=== PATIENT | female | born 1970 | race Caucasian/White ===

== ENCOUNTER → 2018-04-26 | Outpatient (CLI) | payer OTHER ==
[~2018-04-26] MED LIST: AMBEREN; ASPIRIN EC81 M1 PO; ASPIRIN325; HYDROCODONE-AP1 EAC6 PO; IBUPROFEN; MEDROL DOSPAK21 TA1 PO; MOTION RELIEF25 MG PO; NEPHROCAPS SOFT1 CAP PO; NEXIUM 40 MG CA40 M1; NORCO 5-325 TA1 EACH PO; OSELB75 PO; PAXIL CR12.5 MG; RANEXA1000 MG PO; ULTRAM 50MG TAB50 MG PO; VENTOLIN HFA 1818 GM INH; VICODIN; XANAX 0.25 MG0.25 MG PO; XANAX 0.5 MG0.5 M1 PO; ZANTAC; ZOFRAN 4 MG ORAL4 MG PO; ZOFRAN ODT4 MG PO
--- NOTE | 2018-04-26 15:11 | EXE ---
[place] [address] STRESS ECHOCARDIOGRAM Name: ABRAHAM HOFFMAN Room: [facility]#: [id number] Admission: 04/26/18 Attend Phys: Timoteo Gilliland, Discharge: Date of : 68 Date of Service: 04/26/18 1510 Report #: [id number] THIS REPORT FOR: //name// APPROVED REPORT Study performed: 04/26/2018 13:10:54 Exam: Stress Echocardiogram Indication: Syncope, Abnormal EKG, CAD Patient Location: Out-Patient Stress Nurse: Ludmila Suarez RN Supervising Physician: Marquis Harvey MD Ht: 5 ft 8 in HR: 75 bpm BP: 175/95 mmHg Medical History Medications: Atenolol, ASA Procedure The patient underwent an Exercise Stress Test using the Boaz Protocol. Blood pressure, heart rate, and EKG were monitored. An Echocardiogram was performed by pulmonology technician in four stages in quad fashion. At peak stress, four selected images were obtained and placed side by side with resting images for comparison. Stress Test Details Stress Test: Exercise stress testing was performed using a Boaz protocol. HR Resting HR: 75 bpm Max Heart Rate (APMHR): 172 bpm Max HR Achieved: 154 bpm Target HR (85% APMHR): 146 bpm % of APMHR: 89 Recovery HR: 89 bpm HR response to stress: Normal HR response to stress BP Resting BP: 175/95 mmHg Max BP: 161/91 mmHg Recovery BP: 141/87 mmHg ECG Resting ECG: Sinus Rhythm Stress ECG: Sinus Rhythm ST Change: Normal, Horizontal [place] [address] STRESS ECHOCARDIOGRAM Name: ABRAHAM HOFFMAN Room: [facility]#: [id number] Admission: 04/26/18 Attend Phys: Timoteo Gilliland, Discharge: Date of : 68 Date of Service: 04/26/18 1510 Report #: [id number] Maximum ST Deviation: 1 mm Recovery ECG: Sinus Rhythm Recovery ST Change: Normal, Horizontal ST depression Recovery ST Deviation: 0.5 mm Clinical Reason for Termination: Dyspnea Stress Symptoms: Dyspnea Exercise duration: 6 min 49 sec Highest Stage Achieved: Stage 3: 3.4 mph at 14% grade. Exercise capacity: 8.26 METs Stress ECG Conclusion positive ecg Pre-Stress Echo The resting Echocardiogram showed normal left ventricular contractility with an estimated Ejection Fraction of about 55-60%. Post-Stress Echo LV chamber size decreases, LV ejection fraction increases, no new wall motion abnormalities are seen. Conclusion Clinical Response: Non-ischemic Exercise Capacity: Below Average Stress ECG Response: Ischemic Stress Echo Images: Non-ischemic Negative stress echo for ischemia. ECG findings are likely false positive. Other Information Study Quality: Good <Conclusion> Negative stress echo for ischemia. ECG findings are likely false positive. <ELECTRONICALLY SIGNED> By: Marquis Harvey MD, FACC 04/26/181509 09 09 Marquis Harvey MD, FACC /INF
== END ==
LOC: M.CRD 12:41
DX: I25.10 Atherosclerotic heart disease of native coronary artery without angina pectoris (principal); R94.31 Abnormal electrocardiogram [ECG] [EKG]; R55 Syncope and collapse

== ENCOUNTER 2019-07-10 01:21 | Emergency (ER) | payer OTHER ==
[~2019-07-10] VITALS: Ht 172.7 cm; Wt 74.8 kg
[2019-07-10] MEDS ORDERED: NORCO 10-325 T1 EACH PO (01:38)
[2019-07-10] MEDS ORDERED: ATENOLOL 25MG T25 M1 PO (01:38)
[2019-07-10 01:54] LABS: URINE BILIRUBIN NEGATIVE (Negative); URINE BLOOD TRACE (Negative); URINE CLARITY CLEAR; URINE COLOR YELLOW; URINE GLUCOSE-RANDOM NEGATIVE (Negative); URINE KETONES NEGATIVE (Negative); URINE LEUKOCYTES-REFLEX NEGATIVE (Negative); URINE NITRITE-REFLEX NEGATIVE (Negative); URINE PROTEIN NEGATIVE (Negative); URINE SPECIFIC GRAVITY 1.025 (1.005-1.030); URINE UROBILINOGEN 0.2 E.U./dl (0.2-1.0)
[2019-07-10 02:09] LABS: ABSOLUTE BASOPHILS 0.1 thou/uL (0.0-0.2); ABSOLUTE EOSINOPHILS 0.1 thou/uL (0.0-0.7); ABSOLUTE LYMPHOCYTES 2.4 thou/uL (0.8-5.3); ABSOLUTE MONOCYTES 0.7 thou/uL (0.0-1.2); ABSOLUTE NEUTROPHILS 4.3 thou/uL (1.6-8.1); EOSINOPHILS 1.7 %; HEMOGLOBIN 13.2 gm/dL (12.0-15.0); LYMPHOCYTES 31.8 %; MCH 30.5 pg (26.0-34.0); MCHC 33.8 g/dL (28.0-37.0); MCV 90.4 fL (80.0-100.0); MONOCYTES 8.8 %; MPV 8.4 fl. (7.2-11.1); NUCLEATED RBCS 0 /100WBC; PLATELET COUNT* 305 thou/uL (150-400); POLYS 56.7 %; RBC 4.32 mil/uL (4.20-5.00); RDW-CV 13.5 % (10.5-14.5); WBC 7.6 thou/uL (4.0-11.0)
[2019-07-10 02:14] LABS: CALCIUM 9.4 mg/dL (8.5-10.1); CREATININE 0.8 mg/dL (0.6-1.3); POTASSIUM 3.8 mmol/L (3.5-5.1)
[2019-07-10 02:19] LABS: ALBUMIN 3.7 g/dL (3.4-5.0); TOTAL BILIRUBIN 0.2 mg/dL (<0.1-1.0)
[2019-07-10] MEDS ORDERED: FLEXERIL PO (03:35)
[2019-07-10 04:45] VITALS: BP 99/50
== END 2019-07-10 04:47 | disposition home or self-care (01) ==
LOC: M.ERS 01:21
PROVIDERS: Emergency Medicine
DX: M54.5 Low back pain (principal); K21.9 Gastro-esophageal reflux disease without esophagitis; Z90.49 Acquired absence of other specified parts of digestive tract

== ENCOUNTER 2020-05-22 03:30 | Inpatient (IN) | payer OTHER ==
[~2020-05-22] VITALS: Ht 172.7 cm; Wt 72.6 kg
[~2020-05-22 03:30] MED LIST changes: +ATENOLOL 25MG T25 M1 PO; +FLEXERIL PO; +NORCO 10-325 T1 EACH PO
[2020-05-22 03:31] VITALS: BP 122/77
[2020-05-22] MEDS ORDERED: HEARTBURN RELIE20 MG PO (03:44)
[2020-05-22] MEDS ORDERED: PROBIOTIC1 EAC7 PO (03:45)
[2020-05-22] MEDS ORDERED: LOPERAMIDE2 MG PO (03:45)
[2020-05-22 03:58] LABS: URINE BILIRUBIN NEGATIVE (Negative); URINE BLOOD NEGATIVE (Negative); URINE CLARITY CLEAR; URINE COLOR YELLOW; URINE GLUCOSE-RANDOM NEGATIVE (Negative); URINE KETONES NEGATIVE (Negative); URINE LEUKOCYTES-REFLEX NEGATIVE (Negative); URINE NITRITE-REFLEX NEGATIVE (Negative); URINE PROTEIN NEGATIVE (Negative); URINE UROBILINOGEN 0.2 E.U./dl (0.2-1.0)
[2020-05-22 04:22] LABS: AMP/METHAMP Negative (Negative); BARBITURATES Negative (Negative); BENZODIAZEPINES Negative (Negative); COCAINE Negative (Negative); METHADONE Negative (Negative); OPIATES POSITIVE (Negative); PCP Negative (Negative); THC Negative (Negative)
[2020-05-22 04:26] LABS: ABSOLUTE BASOPHILS 0.1 thou/uL (0.0-0.2); ABSOLUTE EOSINOPHILS 0.1 thou/uL (0.0-0.7); ABSOLUTE LYMPHOCYTES 1.9 thou/uL (0.8-5.3); ABSOLUTE MONOCYTES 0.8 thou/uL (0.0-1.2); ABSOLUTE NEUTROPHILS 11.5 thou/uL (1.6-8.1); BASOPHILS 0.6 %; EOSINOPHILS 0.6 %; HEMOGLOBIN 13.5 gm/dL (12.0-15.0); LYMPHOCYTES 13.2 %; MCH 31.1 pg (26.0-34.0); MCHC 34.6 g/dL (28.0-37.0); MCV 89.8 fL (80.0-100.0); MONOCYTES 5.5 %; MPV 8.1 fl. (7.2-11.1); NUCLEATED RBCS 0 /100WBC; PLATELET COUNT* 261 thou/uL (150-400); POLYS 80.1 %; RBC 4.34 mil/uL (4.20-5.00); RDW-CV 13.7 % (10.5-14.5); WBC 14.4 thou/uL (4.0-11.0)
[2020-05-22 04:34] LABS: CALCIUM 8.4 mg/dL (8.5-10.1); POTASSIUM 4.1 mmol/L (3.5-5.1)
[2020-05-22 04:39] LABS: ALBUMIN 3.6 g/dL (3.4-5.0); TOTAL BILIRUBIN 0.3 mg/dL (<0.1-1.0); TOTAL PROTEIN 6.9 g/dL (6.4-8.2)
[2020-05-22 07:00] LABS: CSF GLUCOSE 48 mg/dl (40-70); CSF PROTEIN 144.3 mg/dl (15-45)
[2020-05-22 07:07] LABS: CSF CLARITY CLEAR; CSF COLOR COLORLESS; CSF RBC 280 /mm3; VOLUME 10 ml
[2020-05-22 07:08] LABS: CSF WBC 97 /mm3 (0-10)
[2020-05-22 07:10] LABS: CSF CLARITY CLEAR; CSF COLOR COLORLESS; VOLUME 10 ml
[2020-05-22 07:18] LABS: CSF LYMPHOCYTES 92 % (40-80); CSF POLYS 8 % (0-6)
[2020-05-22 07:29] LABS: CSF WBC 110 /mm3 (0-10)
[2020-05-22 07:30] LABS: CSF EOSINOPHILS ND %; CSF LYMPHOCYTES 94 % (40-80); CSF OTHER ND; CSF POLYS 6 % (0-6); CSF RBC 290 /mm3
[2020-05-22 11:30] VITALS: BP 107/89
[2020-05-22 13:33] VITALS: BP 89/49
[2020-05-22] MEDS ORDERED: FAMOTIDINE 20 M20 MG PO (16:17)
[2020-05-25] MEDS ORDERED: VALTREX 500 MG500 M1 PER TUBE (14:56)
[2020-05-26 06:06] LABS: HSV 1 DNA Negative (Negative); HSV 2 DNA Positive (Negative)
== END 2020-05-22 13:42 | disposition short-term general hospital (02) | DRG 75 ==
LOC: M.ERS 03:30 → M.TBA-ER 07:28
PROVIDERS: Emergency Medicine; ADMIT Internal Medicine; ATTEND Internal Medicine
DX: B00.3 Herpesviral meningitis (principal); R65.10 Systemic inflammatory response syndrome (SIRS) of non-infectious origin without acute organ dysfunction; K21.9 Gastro-esophageal reflux disease without esophagitis; F41.9 Anxiety disorder, unspecified; M54.9 Dorsalgia, unspecified; G89.29 Other chronic pain; M54.16 Radiculopathy, lumbar region; M32.9 Systemic lupus erythematosus, unspecified; B96.89 Other specified bacterial agents as the cause of diseases classified elsewhere; K22.70 Barrett's esophagus without dysplasia; Z20.828 Contact with and (suspected) exposure to other viral communicable diseases; Z90.49 Acquired absence of other specified parts of digestive tract; Z86.718 Personal history of other venous thrombosis and embolism; Z79.899 Other long term (current) drug therapy; Z79.82 Long term (current) use of aspirin

== ENCOUNTER 2021-02-21 19:54 | Emergency (ER) | payer OTHER ==
[~2021-02-21] VITALS: Ht 172.7 cm; Wt 68.0 kg
[~2021-02-21 19:54] MED LIST changes: +FAMOTIDINE 20 M20 MG PO; +HEARTBURN RELIE20 MG PO; +LOPERAMIDE2 MG PO; +PROBIOTIC1 EAC7 PO; +VALTREX 500 MG500 M1 PER TUBE
[2021-02-21] MEDS ORDERED: ATENOLOL 25 MG25 M1 PO (20:16)
[2021-02-21] MEDS ORDERED: VALIUM10 MG PO (20:17)
[2021-02-21 21:10] LABS: ABSOLUTE LYMPHOCYTES 1.4 thou/uL (0.8-5.3); ABSOLUTE MONOCYTES 0.7 thou/uL (0.0-1.2); ABSOLUTE NEUTROPHILS 12.2 thou/uL (1.6-8.1); BASOPHILS 0.3 %; EOSINOPHILS 0.3 %; HEMATOCRIT 42.1 % (37.0-47.0); LYMPHOCYTES 9.8 %; MCH 30.9 pg (26.0-34.0); MCHC 33.3 g/dL (28.0-37.0); MCV 92.7 fL (80.0-100.0); MPV 8.2 fl. (7.2-11.1); NUCLEATED RBCS 0 /100WBC; PLATELET COUNT* 246 thou/uL (150-400); POLYS 84.6 %; RBC 4.54 mil/uL (4.20-5.00); RDW-CV 13.3 % (10.5-14.5); WBC 14.4 thou/uL (4.0-11.0)
[2021-02-21 21:11] LABS: URINE BILIRUBIN NEGATIVE (Negative); URINE BLOOD NEGATIVE (Negative); URINE CLARITY CLEAR; URINE COLOR YELLOW; URINE GLUCOSE-RANDOM NEGATIVE (Negative); URINE KETONES NEGATIVE (Negative); URINE LEUKOCYTES-REFLEX NEGATIVE (Negative); URINE NITRITE-REFLEX NEGATIVE (Negative); URINE PROTEIN NEGATIVE (Negative); URINE SPECIFIC GRAVITY 1.015 (1.005-1.030); URINE UROBILINOGEN 0.2 E.U./dl (0.2-1.0)
[2021-02-21 21:22] LABS: CALCIUM 8.6 mg/dL (8.5-10.1); CREATININE 0.8 mg/dL (0.6-1.3); POTASSIUM 3.9 mmol/L (3.5-5.1)
[2021-02-21 21:26] LABS: ALBUMIN 3.7 g/dL (3.4-5.0); TOTAL BILIRUBIN 0.4 mg/dL (<0.1-1.0); TOTAL PROTEIN 7.1 g/dL (6.4-8.2)
[2021-02-21 21:51] LABS: INFLUENZA A ANTIGEN Negative (Negative); INFLUENZA B ANTIGEN Negative (Negative)
[2021-02-22] MEDS ORDERED: AUGMENTIN 875-1 EACH PO (00:01)
[2021-02-22] MEDS ORDERED: DIFLUCAN150 M1 PO (00:01)
[2021-02-22 00:17] VITALS: BP 118/78
--- NOTE | 2021-02-22 13:57 | EKG ---
[place] [address] ELECTROCARDIOGRAM REPORT Name: ABRAHAM HOFFMAN Room: [facility]#: [id number] Admission: 02/21/21 Attend Phys: Discharge: 02/22/21 Date of : 68 Date of Service: 02/21/212120 Report #: [id number] THIS REPORT FOR: //name// [facility] ED Test Date: 2021-02-21 Test Time: 21:21:30 Pat Name: ABRAHAM HOFFMAN Department: Room: Gender: Meat Cooler: [facility] : 1970 Requested By: Nevaeh Turpin Order Number: [id number] MD: Mian Billings Measurements Intervals [place] Rate: 63 P: 61 ND: 117 QRS: 36 QRSD: 127 T: 259 QT: 432 QTc: 443 Interpretive Statements Sinus rhythm Borderline short ND interval Nonspecific intraventricular conduction delay Nonspecific T abnormalities, diffuse leads Compared to ECG 07/06/2015 12:38:27 Intraventricular conduction delay now present T-wave abnormality now present Electronically Signed On 02-22-2021 13:57:14 CDT by Mian Billings [email or web address] <ELECTRONICALLY SIGNED> By: Mian Billings MD, [facility] 02/22/21 1357 20 20 Mian Billings MD, [facility] /EPI
== END 2021-02-22 00:18 | disposition home or self-care (01) ==
LOC: M.ERS 19:54
PROVIDERS: Nurse Practitioner Family
DX: K62.89 Other specified diseases of anus and rectum (principal); Z20.822 Contact with and (suspected) exposure to COVID-19; R51.9 Headache, unspecified; G89.29 Other chronic pain; R10.2 Pelvic and perineal pain; Z86.718 Personal history of other venous thrombosis and embolism

== ENCOUNTER 2021-10-03 23:05 | Emergency (ER) | payer OTHER ==
[~2021-10-03] VITALS: Ht 172.7 cm; Wt 70.8 kg
[~2021-10-03 23:05] MED LIST changes: +ATENOLOL 25 MG25 M1 PO; +AUGMENTIN 875-1 EACH PO; +DIFLUCAN150 M1 PO; +VALIUM10 MG PO
[2021-10-03 23:52] LABS: CALCIUM 8.7 mg/dL (8.5-10.1); CREATININE 0.9 mg/dL (0.6-1.3); POTASSIUM 4.2 mmol/L (3.5-5.1)
[2021-10-03 23:55] LABS: URINE BILIRUBIN NEGATIVE (Negative); URINE BLOOD NEGATIVE (Negative); URINE CLARITY CLEAR; URINE COLOR YELLOW; URINE GLUCOSE-RANDOM NEGATIVE (Negative); URINE KETONES 1+ (Negative); URINE LEUKOCYTES-REFLEX NEGATIVE (Negative); URINE NITRITE-REFLEX NEGATIVE (Negative); URINE PROTEIN TRACE (Negative); URINE SPECIFIC GRAVITY 1.025 (1.005-1.030); URINE UROBILINOGEN 0.2 E.U./dl (0.2-1.0)
[2021-10-03 23:56] LABS: ABSOLUTE LYMPHOCYTES 1.3 thou/uL (0.8-5.3); ABSOLUTE MONOCYTES 0.3 thou/uL (0.0-1.2); BASOPHILS 0.5 %; EOSINOPHILS 0.1 %; HEMATOCRIT 45.4 % (37.0-47.0); HEMOGLOBIN 15.2 gm/dL (12.0-15.0); LYMPHOCYTES 19.1 %; MCH 30.8 pg (26.0-34.0); MCHC 33.5 g/dL (28.0-37.0); MONOCYTES 4.7 %; NUCLEATED RBCS 0 /100WBC; PLATELET COUNT* 219 thou/uL (150-400); POLYS 75.6 %; RBC 4.93 mil/uL (4.20-5.00); RDW-CV 13.5 % (10.5-14.5); WBC 6.6 thou/uL (4.0-11.0)
[2021-10-03 23:57] LABS: ALBUMIN 3.3 g/dL (3.4-5.0); MAGNESIUM 2.2 mg/dL (1.8-2.4); TOTAL BILIRUBIN 0.3 mg/dL (<0.1-1.0); TOTAL PROTEIN 7.3 g/dL (6.4-8.2)
[2021-10-04] MEDS ORDERED: DECADRON6 MG PO (01:10)
[2021-10-04] MEDS ORDERED: PHENERGAN 25 MG25 M1 PO (01:21)
[2021-10-04] MEDS ORDERED: PROAIR HFA8.5 GM INH (02:47)
[2021-10-04 02:50] VITALS: BP 120/61
== END 2021-10-04 02:50 | disposition home or self-care (01) ==
LOC: M.ERS 23:05
PROVIDERS: Emergency Medicine
DX: U07.1 COVID-19 (principal); R11.2 Nausea with vomiting, unspecified; R19.7 Diarrhea, unspecified; Z79.899 Other long term (current) drug therapy